=== PATIENT | female | born 1995 | race Caucasian/White ===

== ENCOUNTER 2020-02-29 04:12 | Emergency (ER) | payer OTHER ==
[2020-02-29] MEDS ORDERED: ALPRAZolam 0.5 MG Tab PO ONE (04:13)
[2020-02-29] MEDS ORDERED: LORazepam 1 MG Tab PO ONE (04:29)
--- NOTE | 2020-02-29 05:46 | EDM.PDOC ---
ED HPI GENERAL MEDICAL PROBLEM - General Chief Complaint: Chest Pain Stated Complaint: CHEST PAIN Time Seen by Provider: 02/29/20 05:42 Source of Information: Reports: Patient History Limitations: Reports: No Limitations - History of Present Illness INITIAL COMMENTS - FREE TEXT/NARRATIVE: 25 yo female with chest pain since 1 AM. Retrosternal ,sharp pinching pain, radiates to the left shoulder,and to the back. Nothing helps,Tums make it worse. No cough,SOB or fever. No GI symptoms. Further enquiry shows she had these symptoms a month ago,but today 's episode is "way worse'. Had gastric Bypass 6 years ago,and takes Phentermine. Also has MDD,for which she takes Zoloft. Chest Pain Score (Numeric/FACES): 6 - Related Data Allergies Allergy/AdvReac Type Severity Reaction Status Date / Time No Known Allergies Allergy Verified 02/29/20 04:18 Home Meds: Home Meds Phentermine HCl 37.5 mg PO DAILY 02/29/20 [History] Sertraline [Zoloft] 100 mg PO DAILY 02/29/20 [History] Past Medical History - Past Surgical History GI Surgical History: Reports: Bariatric Procedure, Cholecystectomy Other GI Surgeries/Procedures: gastric bypass 2012 Social & Family History - Family History Family Medical History: Noncontributory - Tobacco Use Smoking Status *Q: Never Smoker - Caffeine Use Caffeine Use: Reports: Soda - Recreational Drug Use Recreational Drug Use: No ED ROS GENERAL - Review of Systems Review Of Systems: Comprehensive ROS is negative, except as noted in HPI. ED EXAM, GENERAL - Physical Exam Exam: See Below Exam Limited By: No Limitations General Appearance: Alert, WD/WN, No Apparent Distress, Anxious Ears: Normal External Exam Ear Exam: Bilateral Ear: Auricle Normal, Canal Normal, TM normal Nose: Normal Inspection Throat/Mouth: Normal Inspection Head: Atraumatic Neck: Normal Inspection Respiratory/Chest: No Respiratory Distress, Lungs Clear, Other (Tender Chest wall.) GI/Abdominal: Soft, Non-Tender Rectal (Female) Exam: Deferred Psychiatric: Depressed Mood Skin Exam: Warm Lymphatic: No Adenopathy EKG INTERPRETATION Rhythm: NSR Course - Vital Signs Last Recorded V/S: Last Vital Signs Temp 97.8 F 02/29/20 04:19 Pulse 80 02/29/20 04:19 Resp 16 02/29/20 06:23 BP 115/74 02/29/20 06:23 Pulse Ox 100 02/29/20 06:23 - Orders/Labs/Meds Orders: Active Orders 24 hr Category Date Time Status EKG Documentation Completion [RC] ASDIRECTED Care 02/29/20 04:28 Active CXR [Chest 2V] [CR] Stat Exams 02/29/20 05:37 Taken EKG 12 Lead [EK] Routine Ther 02/29/20 04:27 Ordered Labs: Laboratory Tests 02/29/20 02/29/20 Range/Units 04:50 04:50 D-Dimer, Quantitative 0.37 (0.0-0.59) mg/LFEU Troponin I 4.7 (4.0-60.3) pg/mL Meds: Medications Discontinued Medications Generic Name Dose Route Start Last Admin Trade Name Freq PRN Reason Stop Dose Admin Lorazepam 1 mg 02/29/20 04:29 02/29/20 04:38 Ativan PO 02/29/20 04:30 1 mg ONETIME ONE Administration Departure - Departure Time of Disposition: 06:27 Disposition: Home, Self-Care 01 Condition: Good Clinical Impression: Atypical chest pain Referrals: Oj Rucker MD [Primary Care Provider] - Forms: ED Department Discharge Sepsis Event Note - Evaluation Sepsis Screening Result: No Definite Risk - Focused Exam Vital Signs: Vital Signs Temp Pulse Resp BP Pulse Ox 02/29/20 06:23 16 115/74 100 02/29/20 06:00 18 122/70 100 02/29/20 05:31 20 106/74 98 02/29/20 05:17 16 107/63 100 02/29/20 05:09 22 H 98/63 100 02/29/20 04:43 22 H 114/77 100 02/29/20 04:19 97.8 F 80 20 116/71 100 Date Exam was Performed: 02/29/20 Time Exam was Performed: 06:27 - Problem List & Annotations (1) Atypical chest pain SNOMED Code(s): 690798583 Code(s): R07.89 - OTHER CHEST PAIN Status: Acute Current Visit: Yes (2) Anxiety SNOMED Code(s): 51953530 Code(s): F41.9 - ANXIETY DISORDER, UNSPECIFIED Status: Acute Current Visit: Yes (3) Costochondritis, acute SNOMED Code(s): 70868274, 19866573 Code(s): M94.0 - CHONDROCOSTAL JUNCTION SYNDROME [TIETZE] Status: Acute Current Visit: Yes - Problem List Review Problem List Initiated/Reviewed/Updated: Yes - My Orders Last 24 Hours: My Active Orders 02/29/20 04:27 EKG 12 Lead [EK] Routine 02/29/20 04:28 EKG Documentation Completion [RC] ASDIRECTED 02/29/20 05:37 CXR [Chest 2V] [CR] Stat - Assessment/Plan Last 24 Hours: My Active Orders 02/29/20 04:27 EKG 12 Lead [EK] Routine 02/29/20 04:28 EKG Documentation Completion [RC] ASDIRECTED 02/29/20 05:37 CXR [Chest 2V] [CR] Stat Plan: EKG,Troponin,CXR were all negative. Discussed differentials. Possibly anxiety, or Costochondritis. DC home on Xanax prn
--- NOTE | 2020-02-29 10:04 | CR ---
INDICATION: Shortness of breath. CHEST TWO VIEWS: PA and lateral views of the chest were obtained revealing increased density behind the heart on the left with slightly increased markings in that area making it difficult to exclude patchy pneumonia in the medial posterior left lower lobe. No definite pleuritis, gross consolidating pneumonia , or effusion was seen. Except for a very minimal dextroconvex scoliosis, the heart, mediastinum and bony thorax were unremarkable. Overlying EKG leads are noted. IMPRESSION: Question possibility of a minimal patchy bronchopneumonia at the left lower lobe posteromedially. MTDD
== END 2020-02-29 06:56 | disposition home or self-care (01) ==
LOC: FB.ED 04:12 → EDUNIT# 04:12 → FB.ED 06:56
DX: R07.89 Other chest pain (principal); Z79.899 Other long term (current) drug therapy
CPT/HCPCS: 36415; 71046; 84484; 85379; 93005; 99285-25; A9270-GY